=== PATIENT | male | born 1995 | race Caucasian/White ===

== ENCOUNTER 2017-02-16 18:41 | Emergency (ER) | payer OTHER ==
[2017-02-16 18:59] VITALS: RESP 16
[2017-02-16 19:33] LABS: BASOPHILS % (AUTO) 0 % (0-3); EOSINOPHILS % (AUTO) 1 % (0-9); HEMATOCRIT 42 % (39-53); MEAN CORPUSCULAR HGB CONC 36.9 gm/dl (32.0-36.0); MONOCYTES % (AUTO) 10.3 % (0-12); NEUTROPHILS % (AUTO) 74.9 % (37-80)
[2017-02-16 19:37] LABS: MEAN CORPUSCULAR VOLUME 81 fL (80-100)
[2017-02-16 19:52] VITALS: BP 131/80; PULSE 108; TEMP 98.8; O2SAT 95
== END 2017-02-16 19:51 | disposition home or self-care (01) ==
LOC: ED 18:41
DX: J06.9 Acute upper respiratory infection, unspecified (principal)
CPT/HCPCS: 36415; 85025; 99282